=== PATIENT | male | born 1965 | race African-American/Black ===

== ENCOUNTER 2019-09-22 19:28 | Emergency (ER) | payer MEDICAID ==
[~2019-09-22] VITALS: Ht 180.3 cm; Wt 127.0 kg
[2019-09-22] MEDS ORDERED: IBUPROFEN 600MG TABLET PO ONE (21:00)
[2019-09-22 21:07] LABS: BASOPHILS % 1.2 % (0.0-2.0); EOSINOPHILS % 1.8 % (0.0-5.0); HEMATOCRIT. 44.1 % (42.0-52.0); HEMOGLOBIN. 14.6 g/dL (14.0-18.0); LYMPHOCYTES % 28.7 % (20.0-50.0); MEAN CORPUSCULAR HEMOGLOBIN 26.8 pg (28.0-32.0); MEAN CORPUSCULAR VOLUME 80.7 fL (80.0-94.0); MEAN PLATELET VOLUME 9.6 fl (7.4-10.4); MONOCYTES % 10.9 % (2.0-8.0); NEUTROPHILS % 57.4 % (40.0-76.0); PLATELET 271 x1000/uL (130-400); RED BLOOD CELL COUNT 5.46 mill/uL (4.7-6.1); RED CELL DISTRIBUTION WIDTH 14.9 % (11.6-14.6)
[2019-09-22 21:13] LABS: CHLORIDE 100 mEq/L (98-107)
[2019-09-22 23:07] VITALS: BP 136/82
== END 2019-09-22 23:08 | disposition home or self-care (01) ==
LOC: ER 19:28
DX: M79.642 Pain in left hand (principal); M79.641 Pain in right hand; M79.671 Pain in right foot; M79.672 Pain in left foot; R60.0 Localized edema; E11.65 Type 2 diabetes mellitus with hyperglycemia; Z87.39 Personal history of other diseases of the musculoskeletal system and connective tissue
CPT/HCPCS: 36415; 71045; 80053; 82962; 85025; 93005; 93970; 99285

== ENCOUNTER 2019-11-09 19:16 | Emergency (ER) | payer MEDICAID ==
[~2019-11-09] VITALS: Ht 180.3 cm; Wt 114.0 kg
[2019-11-09 21:29] LABS: EOSINOPHILS % 2.6 % (0.0-5.0); HEMATOCRIT. 39.4 % (42.0-52.0); HEMOGLOBIN. 12.9 g/dL (14.0-18.0); LYMPHOCYTES % 23.8 % (20.0-50.0); MEAN CORPUSCULAR HEMOGLOBIN 26.3 pg (28.0-32.0); MEAN CORPUSCULAR VOLUME 80.4 fL (80.0-94.0); NEUTROPHILS % 64.6 % (40.0-76.0); PLATELET 256 x1000/uL (130-400); RED CELL DISTRIBUTION WIDTH 14.5 % (11.6-14.6)
[2019-11-09 21:35] LABS: CHLORIDE 104 mEq/L (98-107)
[2019-11-09] MEDS ORDERED: INSULIN LISPRO 100 UNITS/ML SUBCUT ONE (23:00)
[2019-11-10 00:55] VITALS: BP 135/65
== END 2019-11-10 01:07 | disposition home or self-care (01) ==
LOC: ER 19:16
DX: R60.0 Localized edema (principal); R42 Dizziness and giddiness; E11.9 Type 2 diabetes mellitus without complications; I10 Essential (primary) hypertension; Z87.39 Personal history of other diseases of the musculoskeletal system and connective tissue
CPT/HCPCS: 36415; 71045; 80053; 83880; 84484; 85025; 93005; 93970; 96372; 99285; J1815

== ENCOUNTER 2020-03-18 02:50 | Emergency (ER) | payer MEDICAID ==
[~2020-03-18] VITALS: Ht 180.3 cm; Wt 116.4 kg
[2020-03-18 04:50] VITALS: BP 151/79
== END 2020-03-18 05:17 | disposition home or self-care (01) ==
LOC: ER 02:50
DX: Z03.818 Encounter for observation for suspected exposure to other biological agents ruled out (principal); J11.1 Influenza due to unidentified influenza virus with other respiratory manifestations; I10 Essential (primary) hypertension; E11.9 Type 2 diabetes mellitus without complications; Z88.0 Allergy status to penicillin
CPT/HCPCS: 87635; 99283

== ENCOUNTER 2020-12-04 12:26 | Emergency (ER) | payer MEDICAID ==
[~2020-12-04] VITALS: Ht 180.3 cm; Wt 93.8 kg
[2020-12-04] MEDS ORDERED: IBUPROFEN 400MG TABLET PO ONE (14:00)
[2020-12-04] MEDS ORDERED: ACETAMINOPHEN 325MG TABLET PO ONE (14:00)
[2020-12-04 14:45] VITALS: BP 164/98
[2020-12-04] MEDS ORDERED: ACET-2708 MT (15:14)
[2020-12-04] MEDS ORDERED: NAPR-1176 MT (15:14)
== END 2020-12-04 15:31 | disposition home or self-care (01) ==
LOC: ER 12:26
DX: M79.672 Pain in left foot (principal); M79.675 Pain in left toe(s); M79.671 Pain in right foot; M79.89 Other specified soft tissue disorders; M79.674 Pain in right toe(s); E11.65 Type 2 diabetes mellitus with hyperglycemia; I10 Essential (primary) hypertension; Z79.4 Long term (current) use of insulin
CPT/HCPCS: 82962; 99283

== ENCOUNTER 2022-07-20 16:03 | Emergency (ER) | payer MEDICAID, OTHER ==
[~2022-07-20] VITALS: Ht 180.3 cm; Wt 100.0 kg
[~2022-07-20 16:03] MED LIST: ACET-2708 MT; NAPR-1176 MT
[2022-07-20] MEDS ORDERED: SODIUM CHLORIDE 0.9% 1000ML BAG (SEPSIS BOLUS) IV ONE (18:00)
[2022-07-20] MEDS ORDERED: CLINDAMYCIN 600 MG in DEXTROSE 5% WATER 50 ML IV ONE (18:00)
[2022-07-20] MEDS ORDERED: CLINDAMYCIN 600MG PREMIX 50 ML IV NR (18:15)
[2022-07-20 19:15] VITALS: BP 141/81
== END 2022-07-20 19:37 | disposition left against medical advice (07) ==
LOC: ER 16:03
DX: L08.89 Other specified local infections of the skin and subcutaneous tissue (principal); R94.31 Abnormal electrocardiogram [ECG] [EKG]; I10 Essential (primary) hypertension; E11.9 Type 2 diabetes mellitus without complications; Z88.0 Allergy status to penicillin
CPT/HCPCS: 71045; 73630; 93005; 99284; J7030; J3490; J7060

== ENCOUNTER 2022-07-30 11:51 | Emergency (ER) | payer OTHER ==
[~2022-07-30] VITALS: Ht 180.3 cm; Wt 100.0 kg
[2022-07-30 18:01] LABS: BASOPHILS % 0.3 % (0.0-2.0); EOSINOPHILS % 0.4 % (0.0-5.0); HEMATOCRIT. 43.5 % (42.0-52.0); HEMOGLOBIN. 14.2 g/dL (14.0-18.0); LYMPHOCYTES % 33.1 % (20.0-50.0); MEAN CORPUSCULAR HEMOGLOBIN 26.1 pg (28.0-32.0); MEAN CORPUSCULAR VOLUME 79.8 fL (80.0-94.0); MEAN PLATELET VOLUME 9.2 fl (7.4-10.4); MONOCYTES % 9.6 % (2.0-8.0); NEUTROPHILS % 56.6 % (40.0-76.0); PLATELET 314 x1000/uL (130-400); RED BLOOD CELL COUNT 5.45 mill/uL (4.7-6.1); RED CELL DISTRIBUTION WIDTH 14.3 % (11.6-14.6)
[2022-07-30 18:16] LABS: CHLORIDE 102 mEq/L (98-107)
[2022-07-30] MEDS ORDERED: MUPI1OIN4 TP (18:34)
[2022-07-30] MEDS ORDERED: DOXY100C5 MT (18:36)
[2022-07-30 19:00] LABS: CLARITY URINE CLEAR (CLEAR); COLOR URINE YELLOW (YELLOW); KETONES URINE NEGATIVE (NEGATIVE); LEUKOCYTE ESTERASE URINE NEGATIVE (NEGATIVE); NITRITE URINE NEGATIVE (NEGATIVE); OCCULT BLOOD URINE 1+ (NEGATIVE); PH URINE 6.5 (4.5-8.0); PROTEIN URINE 2+ (NEGATIVE); SPECIFIC GRAVITY URINE 1.044 (1.005-1.030)
[2022-07-30 19:34] VITALS: BP 151/80
== END 2022-07-30 19:36 | disposition home or self-care (01) ==
LOC: ER 11:51
DX: E11.621 Type 2 diabetes mellitus with foot ulcer (principal); L97.519 Non-pressure chronic ulcer of other part of right foot with unspecified severity
CPT/HCPCS: 36415; 73630; 80053; 81003; 85025; 99284

== ENCOUNTER 2022-11-04 15:11 | Emergency (ER) | payer OTHER ==
[~2022-11-04] VITALS: Ht 180.3 cm; Wt 100.0 kg
[~2022-11-04 15:11] MED LIST changes: +DOXY100C5 MT; +MUPI1OIN4 TP
[2022-11-04 15:29] VITALS: BP 112/79; TEMP 99.2; O2SAT 99
[2022-11-04 15:30] VITALS: PULSE 96
[2022-11-04 16:19] LABS: BASOPHILS % 0.4 % (0.0-2.0); HEMATOCRIT. 41.3 % (42.0-52.0); HEMOGLOBIN. 13.7 g/dL (14.0-18.0); LYMPHOCYTES % 28.4 % (20.0-50.0); MEAN CORPUSCULAR HEMOGLOBIN 26.1 pg (28.0-32.0); MEAN CORPUSCULAR VOLUME 78.5 fL (80.0-94.0); MEAN PLATELET VOLUME 9.3 fl (7.4-10.4); NEUTROPHILS % 61.2 % (40.0-76.0); PLATELET 303 x1000/uL (130-400); RED BLOOD CELL COUNT 5.26 mill/uL (4.7-6.1); RED CELL DISTRIBUTION WIDTH 14.5 % (11.6-14.6)
[2022-11-04 16:31] LABS: CHLORIDE 103 mEq/L (98-107)
[2022-11-04] MEDS ORDERED: CLIN-194 MT (17:28)
[2022-11-04] MEDS ORDERED: CIPR750T4 MT (17:28)
[2022-11-04] MEDS ORDERED: CLIN-116 MT (17:28)
[2022-11-04] MEDS ORDERED: LEVOFLOXACIN 250MG TABLET PO ONE (17:30)
[2022-11-04] MEDS ORDERED: AMOXICILLIN/POTASSIUM CLAVULANATE 875/125MG TAB PO ONE (17:30)
[2022-11-04] MEDS ORDERED: CLINDAMYCIN HCL 150MG CAPSULE PO ONE (17:30)
== END 2022-11-04 18:35 | disposition home or self-care (01) ==
LOC: ER 15:11
DX: E11.621 Type 2 diabetes mellitus with foot ulcer (principal); E11.65 Type 2 diabetes mellitus with hyperglycemia; I10 Essential (primary) hypertension; Z79.899 Other long term (current) drug therapy; Z88.0 Allergy status to penicillin
CPT/HCPCS: 80053; 82962; 85025; 36415; 73630; 73660; 99284; Z7610

== ENCOUNTER 2023-10-29 00:30 | Emergency (ER) | payer MEDICAID, OTHER ==
[~2023-10-29] VITALS: Ht 180.3 cm; Wt 100.0 kg
[~2023-10-29 00:30] MED LIST changes: +CIPR750T4 MT; +CLIN-116 MT; +CLIN-194 MT
[2023-10-29 00:35] VITALS: O2SAT 99
[2023-10-29] MEDS ORDERED: ACETAMINOPHEN 325MG TABLET PO STA (00:35)
[2023-10-29 01:10] LABS: BASOPHILS % 0.8 % (0.0-2.0); DIFFERENTIAL COMMENT 0; EOSINOPHILS % 4.4 % (0.0-5.0); HEMATOCRIT. 30.2 % (42.0-52.0); HEMOGLOBIN. 9.6 g/dL (14.0-18.0); MEAN CORPUSCULAR HEMOGLOBIN 24.9 pg (28.0-32.0); MEAN CORPUSCULAR HGB CONC 31.8 g/dL (31.0-37.0); MEAN CORPUSCULAR VOLUME 78.2 fL (80.0-94.0); MEAN PLATELET VOLUME 8.2 fl (7.4-10.4); MONOCYTES % 10.6 % (2.0-8.0); NEUTROPHILS % 59.2 % (40.0-76.0); PLATELET 358 x1000/uL (130-400); RED BLOOD CELL COUNT 3.86 mill/uL (4.7-6.1); RED CELL DISTRIBUTION WIDTH 15.3 % (11.6-14.6); WHITE BLOOD COUNT 7.9 x1000/uL (4.5-11.0)
[2023-10-29 01:21] LABS: CHLORIDE 105 mEq/L (98-107); POTASSIUM 3.6 mEq/L (3.5-5.1); PROTHROMBIN TIME 10.9 sec (9.6-11.0); SODIUM 140 mEq/L (136-145)
[2023-10-29 01:22] LABS: CARBON DIOXIDE 25 mEq/L (21-32)
[2023-10-29 01:23] LABS: CALCIUM 8.7 mg/dL (8.7-10.4)
[2023-10-29 01:27] LABS: CREATININE 0.8 mg/dL (0.6-1.3)
[2023-10-29 01:28] LABS: UREA NITROGEN BLOOD 12 mg/dL (9-23)
[2023-10-29 01:29] LABS: LACTIC ACID 2.4 mmol/L (0.4-2.0)
[2023-10-29 01:30] LABS: ETHANOL BLOOD < 10 mg/dL (<10); GLUCOSE 250 mg/dL (70-105)
[2023-10-29] MEDS: VANCOMYCIN 1.5GM/250ML 250 ML IV NR (05:00)
[2023-10-29 05:05] VITALS: BP 129/77; PULSE 100; RESP 20; TEMP 99.2
[2023-10-29] MEDS ORDERED: ACETAMINOPHEN 325MG TABLET PO NR (05:30)
== END 2023-10-29 05:56 | disposition left against medical advice (07) ==
LOC: ER 00:30 → CANBEDREQ 10-31 21:59
DX: L03.115 Cellulitis of right lower limb (principal); M86.9 Osteomyelitis, unspecified; Z88.0 Allergy status to penicillin; Z79.899 Other long term (current) drug therapy
CPT/HCPCS: 80048; 80320; 83605; 85025; 85610; 87040; 36415; 84145; 93971; 71045; 73590; 73630; 96365; 99284; J3370; G0480